=== PATIENT | female | born 1945 | race Hispanic/Latino ===

== ENCOUNTER 2018-07-23 06:54 | Day surgery (SDC) | payer MEDICARE ==
[~2018-07-23] VITALS: Ht 157.5 cm; Wt 52.6 kg
[~2018-07-23 06:54] MED LIST: ALENDRONATE70 MG PO; ALL DAY ALLG10 MG PO; COLACE100 MG PO; LISINOPRIL20 M1 PO; METFORMIN1000 MG PO; MOBIC7.5 M1 PO; PRILOSEC20 MG/CAP PO; SIMVASTATIN40 MG PO; URECHOLINE25 MG PO; VISTARIL25 MG PO
[2018-07-23 12:00] VITALS: BP 127/61
== END 2018-07-23 10:17 | disposition home or self-care (01) ==
LOC: ENDO 06:54 → ORM 13:30 → ENDO 13:30
PROVIDERS: ATTEND Internal Medicine Gastroenterology
PROC: 0DBN8ZX Excision of Sigmoid Colon, Via Natural or Artificial Opening Endoscopic, Diagnostic (ICD-10-PCS; principal; 2018-07-23)
DX: Z12.11 Encounter for screening for malignant neoplasm of colon (principal); K63.5 Polyp of colon; K64.4 Residual hemorrhoidal skin tags; K57.30 Diverticulosis of large intestine without perforation or abscess without bleeding; E11.9 Type 2 diabetes mellitus without complications; Z86.010 Personal history of colon polyps